=== PATIENT | female | born 1965 | race Caucasian/White ===

== ENCOUNTER → 2017-06-16 | Outpatient (CLI) | payer BC ==
--- NOTE | 2017-06-16 10:43 | MM ---
Reason for exam: additional evaluation requested from abnormal screening. Last mammogram was performed 1 month ago. History: Patient had first child at age 36. Took hormonal contraceptives for 6 years. Physical Findings: Nurse did not find any significant physical abnormalities on exam. MG Work Up Mamm w CAD RT CC with magnification, LM with magnification, and LM view(s) were taken of the right breast. Prior study comparison: May 18, 2017, bilateral MG screening mammo w CAD. April 15, 2016, bilateral MG screening mammo w CAD. There are indeterminate calcifications in the right breast. These results were verbally communicated with the patient and result sheet given to the patient on 06/16/17. ASSESSMENT: Suspicious, BI-RAD 4 RECOMMENDATION: Surgical consultation and stereotactic core biopsy of the right breast. Called Dr. Lau with mammographic findings. Patient request to talk with Dr. Lau regarding biopsy and will call office. PRELIMINARY REPORT CALLED AND FAXED TO DR. LAU ON 06/16/17.
== END | disposition home or self-care (01) ==
LOC: RADMAMWWP 09:12
PROVIDERS: ATTEND Obstetrics & Gynecology
DX: R92.8 Other abnormal and inconclusive findings on diagnostic imaging of breast (principal)
CPT/HCPCS: 77065

== ENCOUNTER → 2017-06-29 | Day surgery (SDC) | payer BC ==
[2017-06-29 07:21] VITALS: RESP 16; BMI 19.2
[2017-06-29 09:09] VITALS: BP 125/68; PULSE 72; TEMP 98
--- NOTE | 2017-06-29 09:16 | MM ---
Stereotactic Mammotome core biopsy right breast. HISTORY: Microcalcifications The Microcalcifications in question within the right breast were targeted by the undersigned. Procedure was performed by the undersigned. Informed consent was obtained and all of the patients questions were answered. The standard sterile technique was utilized and appropriate local anesthesia was obtained with 1% licocaine. Mammotome probe was advanced and multiple core samples were obtained and sent to pathology for interpretation. Microclip marker was deployed at the site of biopsy. Post procedural mammogram demonstrates appropriate deployment of radiopaque clip marker. The patient tolerated the procedure well and left the department in stable condition. Pathology results are pending. IMPRESSION: Successful stereotactic core biopsy right breast with pathology results pending. Pathology Results: Benign BREAST, RIGHT, SITE A, STEREOTACTIC CORE BIOPSY: FIBROSIS, CYST FORMATION, APOCRINE METAPLASIA, ADENOSIS AND DUCT HYPERPLASIA. SCATTERED CALCIUM OXYLATE TYPE CRYSTALS ARE IDENTIFIED. PENDING DEEPER SECTIONS TO FURTHER EVALUATE FOR CALCIFICATIONS AND THE RESULTS WILL BE ISSUED IN AN ADDENDUM REPORT. ADDENDUM REPORT BREAST, RIGHT, SITE A, STEREOTACTIC CORE BIOPSY: FIBROCYSTIC CHANGE (FIBROSIS, CYST FORMATION, APOCRINE METAPLASIA, ADENOSIS AND DUCT HYPERPLASIA). CALCIUM OXYLATE TYPE CRYSTALS ARE ODEMTOFOED. Recommendation Follow up mammogram of the right breast in 6 months. JERRYD
== END ==
LOC: RADMAMWWP 07:06
PROVIDERS: ATTEND Obstetrics & Gynecology
DX: N60.31 Fibrosclerosis of right breast (principal); N60.81 Other benign mammary dysplasias of right breast; N60.21 Fibroadenosis of right breast; N60.91 Unspecified benign mammary dysplasia of right breast
CPT/HCPCS: 88305; 19081; A4648; J2001

== ENCOUNTER → 2018-06-14 | Outpatient (CLI) | payer BC ==
--- NOTE | 2018-06-15 17:07 | MM ---
Reason for exam: additional evaluation requested from prior study. Last mammogram was performed 1 year ago. History: Patient had first child at age 36. Benign MG stereo VAD BX RT of the right breast, June 29, 2017. Took hormonal contraceptives for 6 years. Physical Findings: Nurse did not find any significant physical abnormalities on exam. MG 3D Diag Mammo W/Cad SARAH Bilateral CC and MLO view(s) were taken. Prior study comparison: June 16, 2017, right breast MG work up mamm w CAD RT. May 18, 2017, bilateral MG screening mammo w CAD. The breast tissue is extremely dense which could obscure a lesion on mammography. There are benign-appearing round calcifications in both breast upper outer. Right breast chronic nodularity. No disscrete abnormality. These results were verbally communicated with the patient and result sheet given to the patient on 06/14/18. ASSESSMENT: Benign, BI-RAD 2 RECOMMENDATION: Routine screening mammogram of both breasts in 1 year.
== END | disposition home or self-care (01) ==
LOC: RADMAMWWP 07:36
PROVIDERS: ATTEND Obstetrics & Gynecology
DX: R92.8 Other abnormal and inconclusive findings on diagnostic imaging of breast (principal)
CPT/HCPCS: 77062; 77066

== ENCOUNTER → 2020-08-20 | Outpatient (CLI) | payer BC ==
--- NOTE | 2020-08-22 09:48 | MM ---
Reason for exam: screening (asymptomatic). Last mammogram was performed 1 year and 1 month ago. History: Patient is postmenopausal and had first child at age 36. Benign MG stereo VAD BX RT of the right breast, June 29, 2017. Took hormonal contraceptives for 6 years. Physical Findings: A clinical breast exam by your physician is recommended on an annual basis and results should be correlated with mammographic findings. MG 3D Screening Mammo W/Cad Bilateral CC and MLO view(s) were taken. Prior study comparison: July 27, 2019, bilateral MG 3d screening mammo w/cad. June 14, 2018, bilateral MG 3d diag mammo w/cad SARAH. The breast tissue is heterogeneously dense. This may lower the sensitivity of mammography. Previous mammotome biopsy in the right breast. No significant changes when compared with prior studies. ASSESSMENT: Benign, BI-RAD 2 RECOMMENDATION: Routine screening mammogram of both breasts in 1 year.
== END ==
LOC: RADMAMWWP 08:39
PROVIDERS: ATTEND Obstetrics & Gynecology
DX: Z12.31 Encounter for screening mammogram for malignant neoplasm of breast (principal); Z78.0 Asymptomatic menopausal state
CPT/HCPCS: 77063; 77067

== ENCOUNTER → 2021-08-21 | Outpatient (CLI) | payer BC ==
--- NOTE | 2021-08-22 14:01 | MM ---
Reason for exam: screening (asymptomatic). Last mammogram was performed 1 year ago. History: Patient is postmenopausal and had first child at age 36. Benign MG stereo VAD BX RT of the right breast, June 29, 2017. Took hormonal contraceptives for 6 years. Physical Findings: A clinical breast exam by your physician is recommended on an annual basis and results should be correlated with mammographic findings. MG 3D Screening Mammo W/Cad Bilateral CC and MLO view(s) were taken. Prior study comparison: August 20, 2020, bilateral MG 3d screening mammo w/cad. July 27, 2019, bilateral MG 3d screening mammo w/cad. The breast tissue is heterogeneously dense. This may lower the sensitivity of mammography. There is no discrete abnormality. No significant changes when compared with prior studies. ASSESSMENT: Negative, BI-RAD 1 RECOMMENDATION: Routine screening mammogram of both breasts in 1 year.
== END | disposition home or self-care (01) ==
LOC: RADMAMWWP 09:05
PROVIDERS: ATTEND Obstetrics & Gynecology
DX: Z12.31 Encounter for screening mammogram for malignant neoplasm of breast (principal); Z78.0 Asymptomatic menopausal state
CPT/HCPCS: 77063; 77067

== ENCOUNTER → 2022-08-27 | Outpatient (CLI) | payer BC ==
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
--- NOTE | 2022-08-28 09:14 | MM ---
Reason for Exam: Screening (asymptomatic). Last screening mammogram was performed 12 month(s) ago. Patient History: Menarche at age 13. First Full-Term at age 36. Late child-bearing (after 30). Postmenopausal. Patient has history of breast feeding. Patient used Hormonal Contraceptives for 6 years. 06/29/2017, Benign Core Biopsy on the right side. Risk Values: Ynes 5 year model risk: 2.0%. NCI Lifetime model risk: 12.8%. Prior Study Comparison: 05/18/2017 Bilateral Screening Mammogram, [facility]. 06/16/2017 Right Diagnostic Mammogram, [facility]. 06/14/2018 Bilateral Diagnostic Mammogram, [facility]. 07/27/2019 Bilateral Screening Mammogram, [facility]. 08/20/2020 Bilateral Screening Mammogram, [facility]. 08/21/2021 Bilateral Screening Mammogram, [facility]. Tissue Density: The breast tissue is heterogeneously dense. This may lower the sensitivity of mammography. Findings: Analyzed By CAD. There is no suspicious group of microcalcifications or new suspicious mass in either breast. Biopsy clip within the right breast. Overall Assessment: Benign, BI-RAD 2 Management: Screening Mammogram of both breasts in 1 year. A clinical breast exam by your physician is recommended on an annual basis and results should be correlated with mammographic findings. Electronically signed and approved by: Negro Allen D.O.
== END | disposition home or self-care (01) ==
LOC: RADMAMWWP 07:28
PROVIDERS: ATTEND Obstetrics & Gynecology
DX: Z12.31 Encounter for screening mammogram for malignant neoplasm of breast (principal); M85.89 Other specified disorders of bone density and structure, multiple sites; Z78.0 Asymptomatic menopausal state
CPT/HCPCS: 77063; 77067; 77080

== ENCOUNTER → 2022-11-26 | Outpatient (CLI) | payer BC ==
--- NOTE | 2022-11-26 17:44 | MR ---
EXAMINATION TYPE: MR shoulder RT wo con DATE OF EXAM: 11/26/2022 COMPARISON: No radiographic correlation available HISTORY: 57-year-old female Right shoulder pain and limited range of motion for 3 months. History of surgery 06-03-22. TECHNIQUE: Multiplanar, multisequence imaging of the right shoulder is performed without contrast. FINDINGS: The intracapsular portion of the long head biceps tendon is not well delineated and may be torn. The tendon along the upper bicipital groove is diminutive and irregular by fibers are seen along the mid to lower bicipital groove. Heterogeneous signal of the subscapularis tendon without tear.. Double suture anchors are noted along the lateral margin of the anterior greater tuberosity. Extensiv e bone marrow edema is present here and the more superior anchor appears to have backed out by 7 mm. Extensive adjacent soft tissue edema and moderate bursal effusion. There is very irregular appearance of the cuff with shallow bursal sided tearing throughout an additional high-grade articular sided te ar of the anterior to mid cervical spinous tendon measuring 1.1 x 1.1 cm. No atrophy of the rotator cuff musculature. There is a cowhk-yx-pgwbrsod joint effusion and degenerative blunting of the superior and posterior g lenoid leighton. Moderate degenerative change at the AC joint without significant impingement on the underlying tuft. There is prominent subchondral marrow edema that could represent acute exacerbation of underlying ost eoarthrosis. No Hill-Sachs deformity or os acromiale. Patchy red marrow may be seen with anemia, obesity, smoking, chronic disease. IMPRESSION: 1. Previous supraspinatus tendon repair. There is intense edema at the greater tuberosity with the mo re superior suture anchor backed out by 7 mm. There is shallow bursal sided tearing throughout both s upraspinatus and infraspinatus tendons as well as a high-grade articular sided retear of the anterior to mid supraspinatus tendon measuring 1.1 x 1.1 cm with only a few bursal fibers still remaining int act here. Given the edema, soft tissue swelling, and moderate bursal effusion, suspect a more acute i njury. 2. The intracapsular portion of the long head biceps tendon appears torn. 3. Moderate AC joint OA but with prominent edema that could reflect a mild joint sprain or acute exac erbation of underlying arthritis. 4. Degenerative change throughout the superior and posterior labrum.
== END | disposition home or self-care (01) ==
LOC: RADMRIMAIN 07:02
PROVIDERS: ATTEND Orthopaedic Surgery
DX: T84.84XA Pain due to internal orthopedic prosthetic devices, implants and grafts, initial encounter (principal); M17.11 Unilateral primary osteoarthritis, right knee; M25.411 Effusion, right shoulder; R60.0 Localized edema

== ENCOUNTER → 2023-10-05 | Outpatient (CLI) | payer BC ==
--- NOTE | 2023-10-06 09:22 | MM ---
Reason for Exam: Screening (asymptomatic). Last mammogram was performed 1 year(s) and 1 month(s) ago. Patient History: Menarche at age 13. First Full-Term at age 36. Late child-bearing (after 30). Postmenopausal. Patient has history of breast feeding. Patient used Hormonal Contraceptives for 6 years. 06/29/2017, Benign Core Biopsy on the right side. Risk Values: Ynes 5 year model risk: 2.1%. NCI Lifetime model risk: 12.5%. Prior Study Comparison: 08/20/2020 Bilateral Screening Mammogram, [facility]. 08/21/2021 Bilateral Screening Mammogram, [facility]. 08/27/2022 Bilateral MG 3D screening mammo w/cad, [facility]. Tissue Density: The breasts are heterogeneously dense, which may obscure small masses. Findings: Analyzed By CAD. There is no suspicious group of microcalcifications or new suspicious mass in either breast. Stable benign calcifications right breast. Overall Assessment: Benign, BI-RAD 2 Management: Screening Mammogram of both breasts in 1 year. . Patient should continue monthly self-breast exams. A clinical breast exam by your physician is recommended on an annual basis. This exam should not preclude additional follow-up of suspicious palpable abnormalities. Note on Ynes scores and lifetime risk: 1. A Ynes score greater than 3% is considered moderate risk. If this is the case, consider specialist referral to assess eligibility for a risk reducing agent. 2. If overall lifetime risk for the development of breast cancer is 20% or higher, the patient may qualify for future screening with alternating mammogram and breast MRI. Electronically signed and approved by: Dallin Meyers M.D. Radiologis
== END | disposition home or self-care (01) ==
LOC: RADMAMWWP 08:34
PROVIDERS: ATTEND Obstetrics & Gynecology
DX: Z12.31 Encounter for screening mammogram for malignant neoplasm of breast (principal); Z78.0 Asymptomatic menopausal state
CPT/HCPCS: 77063; 77067

== ENCOUNTER → 2024-12-20 | Outpatient (CLI) | payer BC ==
--- NOTE | 2024-12-20 15:27 | MM ---
Reason for Exam: Screening (asymptomatic). Last mammogram was performed 1 year(s) and 3 month(s) ago. Patient History: Menarche at age 13. First Full-Term at age 36. Late child-bearing (after 30). Postmenopausal. Patient has history of breast feeding. Patient used Hormonal Contraceptives for 6 years. 06/29/2017, Benign Core Biopsy on the right side. Risk Values: Ynes 5 year model risk: 2.3%. NCI Lifetime model risk: 12.0%. Prior Study Comparison: 08/21/2021 Bilateral Screening Mammogram, [facility]. 08/27/2022 Bilateral MG 3D screening mammo w/cad, [facility]. 10/05/2023 Bilateral MG 3D screening mammo w/cad, [facility]. Tissue Density: The breasts are heterogeneously dense, which may obscure small masses. Findings: Analyzed By CAD. There is no suspicious group of microcalcifications or new suspicious mass in either breast. Overall Assessment: Benign, BI-RAD 2 Management: Screening Mammogram of both breasts in 1 year. . Patient should continue monthly self-breast exams. A clinical breast exam by your physician is recommended on an annual basis. This exam should not preclude additional follow-up of suspicious palpable abnormalities. Note on Ynes scores and lifetime risk: 1. A Ynes score greater than 3% is considered moderate risk. If this is the case, consider specialist referral to assess eligibility for a risk reducing agent. 2. If overall lifetime risk for the development of breast cancer is 20% or higher, the patient may qualify for future screening with alternating mammogram and breast MRI. [facility], , 12/20/2024 3:24 PM. Electronically signed and approved by: Jeff Willis M.D. Radiologis
--- NOTE | 2024-12-21 12:12 | BD ---
EXAMINATION TYPE: Axial Bone Density DATE OF EXAM: 12/20/2024 CLINICAL HISTORY: 59 years old Female. ICD-10 CODE: Z78.0 POST MENOPAUSAL WITHOUT HRT , Additional H istory: Height: 63 Weight: 106.5 FRAX RISK QUESTIONS: Alcohol (3 or more units per day): no Family History (Parent hip fracture): no Glucocorticoids (More than 3mos): no (Ex: prednisone, prednisolone, methylprednisolone, dexamethasone, and hydrocortisone). History of Fracture in Adulthood: yes Secondary Osteoporosis: 1. Type 1 Diabetes: no 2. Hyperthyroidism: no 3. Menopause before 45: no 4. Malnutrition: no 5. Chronic liver disease: no Rheumatoid Arthritis: no Current Tobacco Use: no RISK FACTORS HISTORY OF: Hip Fracture (Right/Left): no Spine Fracture: no History of Wrist Fracture: RT Wrist When: Age 21 Surgery to Spine/Hip(right/left)/Wrist (right/left): no MEDICATIONS: Thyroid Medications: no Osteoporosis Medications: no EXAM MEASUREMENTS: Bone mineral densitometry was performed using the [employer]pan System. Bone mineral density as measured about the Lumbar spine is: ----- L1-L4(G/cm2): 1.220 T Score Values are as follows: ----- L1: 0.2 ----- L2: 0.2 ----- L3: 0.9 ----- L4: -0.1 ----- L1-L4: 0.3 Z Score Values are as follows: ----- L1: 1.9 ----- L2: 1.9 ----- L3: 2.5 ----- L4: 1.6 ----- L1-L4: 2.0 Bone mineral density has: increased 1.2 % since study of: 08/27/2022 Bone mineral density about the R hip (g/cm2): 0.875 Bone mineral density about the L hip (g/cm2): 0.921 T Score values are as follows: -----R Neck: -0.9 -----L Neck: -0.4 -----R Total: -1.1 -----L Total: -0.7 Z Score values are as follows: -----R Neck: 0.6 -----L Neck: 1.2 -----R Total: 0.2 -----L Total: 0.6 Bone mineral density has: increased 0.8 % since study of: FRAX%s: The graph provided illustrates a 10.0% chance for a major osteoporotic fx and a 0.6% chance f or the hips probability for fx in 10 years time. IMPRESSION: Osteopenia (T Score between -2.5 and -1). There is slightly increased risk of fracture and the patient may be considered for treatment. Re-Screen 2-5 years. NOTE: T-SCORE=SD OF THE YOUNG ADULT MEAN. [facility], , 12/21/2024 12:09 PM
== END | disposition home or self-care (01) ==
LOC: RADMAMWWP 14:36
PROVIDERS: ATTEND Obstetrics & Gynecology
DX: Z12.31 Encounter for screening mammogram for malignant neoplasm of breast (principal); R92.333 Mammographic heterogeneous density, bilateral breasts; M85.851 Other specified disorders of bone density and structure, right thigh; Z78.0 Asymptomatic menopausal state; Z92.0 Personal history of contraception
CPT/HCPCS: 77063; 77067; 77080